=== PATIENT | male | born 1990 ===

== ENCOUNTER 2021-07-04 19:42 | Emergency (ER) | payer OTHER, BC ==
[~2021-07-04] VITALS: Ht 177.8 cm; Wt 87.6 kg
[2021-07-04] MEDS ORDERED: LIDOcaine 1% W/epiNEPHrine 1:100,000 20ml vial SQ ONE (19:55)
[2021-07-04 19:57] VITALS: BP 155/105
== END 2021-07-04 20:55 | disposition home or self-care (01) ==
LOC: ER 19:42
DX: S61.214A Laceration without foreign body of right ring finger without damage to nail, initial encounter (principal); Z72.89 Other problems related to lifestyle; X58.XXXA Exposure to other specified factors, initial encounter; Y93.89 Activity, other specified; Y92.89 Other specified places as the place of occurrence of the external cause; Y99.8 Other external cause status
CPT/HCPCS: 12001; 99282